=== PATIENT | male | born 1950 | race Two or more races ===

== ENCOUNTER 2021-02-03 10:23 | Outpatient (CLI) | payer OTHER | END 2021-02-03 10:45 | disposition home or self-care (01) | LOC: TOM 10:23 | DX: R19.4 Change in bowel habit (principal) ==

== ENCOUNTER 2024-10-05 05:57 | Inpatient (IN) | payer OTHER ==
[~2024-10-05] VITALS: Ht 182.9 cm; Wt 95.3 kg
[2024-10-05] MEDS ORDERED: ELIQUIS5 MG PO (06:45)
[2024-10-05] MEDS ORDERED: SIMVASTATIN40 MG PO (06:45)
[2024-10-05] MEDS ORDERED: LOSARTAN-HCTZ1 EAC1 PO (06:45)
[2024-10-05] MEDS ORDERED: TAMSULOSIN HCL0.4 MG PO (06:46)
[2024-10-05] MEDS ORDERED: METOPROLOL TAR100 MG PO (06:46)
[2024-10-05] MEDS ORDERED: LOSARTAN-HCTZ1 EAC2 PO (06:46)
[2024-10-05] MEDS ORDERED: FUROsemide 40 MG/4 ML VIAL IV ONE (08:30)
[2024-10-05 09:10] LABS: HEMATOCRIT 40.8 % (39.0-48.0); HEMOGLOBIN 14.1 g/dL (13-16.00); MEAN CELL VOLUME 100.3 fL (80.0-100.00); MEAN CORPUSCULAR HEMOGLOBIN 34.7 pg (27.00-32.0); MEAN CORPUSCULAR HGB CONC 34.6 g/dl (32.0-36.0); PLATELET COUNT 144 K/uL (150-450); RED BLOOD COUNT 4.07 M/uL (4.00-6.00); RED CELL DISTRIBUTION WIDTH 13.3 % (11.5-14.5)
[2024-10-05] MEDS ORDERED: LEVALBUTEROL HCL 1.25 MG/3 ML SOLUTION IH ONE (09:35)
[2024-10-05] MEDS ORDERED: IPRATROPIUM BROMIDE 0.5 MG/2.5 ML AMPUL.NEB IH ONE (09:35)
[2024-10-05] MEDS ORDERED: NITROGLYCERIN IN 5 % DEXTROSE 50 MG/250 ML BOTTLE IV ONE (09:42)
[2024-10-05 09:44] LABS: URINE APPEARANCE Clear; URINE BILIRRUBIN Negative (NEGATIVE); URINE BLOOD Negative; URINE COLOR Yellow; URINE GLUCOSE Negative (NEGATIVE); URINE KETONE Trace (NEGATIVE); URINE LEUKOCYTE Negative; URINE NITRATE Negative; URINE PROTEIN Trace (NEGATIVE); URINE UROBILINOGEN 0.2 E.U./dl
[2024-10-05 09:47] LABS: URINE BACTERIA 145.6 uL (0.0-1933); URINE EPITHELIAL CELLS 9.1 uL (0.0-38.8); URINE WBC 6.9 uL (0.0-23.2)
[2024-10-05 09:48] LABS: URINE CAST 0.44 uL (0.0-1.40); URINE RBC 1.7 uL (0.0-20.8)
[2024-10-05] MEDS ORDERED: NITROGLYCERIN IN 5 % DEXTROSE 250 ML IV SCH (10:00)
[2024-10-05 10:01] LABS: ABG PH 7.395 (7.35-7.45); ABG PO2 62.4 mmHg (80-100); ABG pCO2 42.6 mmHg (35-45); BASE EXCESS 0.4 mmol/l; BICARBONATE 25.5 mmol/l (23-25); SaO2 91.4 %; Tco2 26.8 mmol/l; allen test SATISFACTORY; o2 32 %; puncture site RADIAL RIGHT
[2024-10-05 10:08] LABS: ALBUMIN 3.6 gm/dL (3.4-5.0); BILIRUBIN TOTAL 1.02 mg/dL (0.3-1.2); CALCIUM 9.3 mg/dL (8.5-10.1); CREATININE SERUM 1.1 mg/dL (0.70-1.30); GFR 65.8; GLOBULINA 3.7 G/DL (2.4-3.5); POTASSIUM 3.44 mEq/L (3.5-5.1); TOTAL PROTEIN 7.3 gm/dL (6.4-8.2)
[2024-10-05 10:32] LABS: INR 1.15; PARTIAL THROMBOPLASTIN TIME 32.8 SECONDS (22.0-34.0); PROTHROMBIN TIME 12.4 SECONDS (9.0-11.5)
[2024-10-05] MEDS ORDERED: LOSARTAN POTASSIUM 100 MG TABLET PO ONE (11:00)
[2024-10-05] MEDS ORDERED: APIXABAN 5 MG TABLET PO ONE (13:00)
[2024-10-05] MEDS ORDERED: DILTIAZEM HCL 125MG/25ML VIAL IV ONE (13:32)
[2024-10-05] MEDS ORDERED: DILTIAZEM HCL 125 MG in 0.9 % SODIUM CHLORIDE 100 ML IV SCH (13:45)
[2024-10-05 14:19] LABS: ABG PH 7.407 (7.35-7.45); ABG PO2 83.4 mmHg (80-100); ABG pCO2 46.2 mmHg (35-45); BICARBONATE 28.4 mmol/l (23-25); SaO2 96.3 %; Tco2 29.8 mmol/l; allen test SATISFACTORY; puncture site RADIAL RIGHT
[2024-10-05 14:20] LABS: o2 50 %
[2024-10-05] MEDS ORDERED: FUROsemide 40 MG/4 ML VIAL ONE (15:31)
[2024-10-05 16:49] VITALS: BP 146/84; O2SAT 96
[2024-10-05] MEDS ORDERED: FAMOtidine 20 MG TABLET PO SCH (17:00)
[2024-10-05] MEDS ORDERED: APIXABAN 5 MG TABLET PO SCH (17:00)
[2024-10-05] MEDS ORDERED: SIMVASTATIN 40 MG TABLET PO SCH (17:00)
[2024-10-05] MEDS ORDERED: FUROsemide 40 MG/4 ML VIAL IV SCH ×2 (17:00→21:00)
[2024-10-05] MEDS ORDERED: FAMOTIDINE/PF 20 MG/2 ML VIAL ONE (17:41)
[2024-10-05 17:59] VITALS: BP 118/96; O2SAT 96
[2024-10-05 21:16] VITALS: BP 92/66; O2SAT 94
[2024-10-05 22:36] VITALS: BP 112/60; O2SAT 97
[2024-10-06] VITALS (8 sets, daily range): BP systolic 54–123; BP diastolic 33–75; O2SAT 92–100
[2024-10-06] MEDS ORDERED: DILTIAZEM HCL 125MG/25ML VIAL IV ONE (04:38)
[2024-10-06 06:27] LABS: HEMATOCRIT 49.1 % (39.0-48.0); HEMOGLOBIN 16.5 g/dL (13-16.00); MEAN CELL VOLUME 102.6 fL (80.0-100.00); MEAN CORPUSCULAR HEMOGLOBIN 34.4 pg (27.00-32.0); MEAN CORPUSCULAR HGB CONC 33.6 g/dl (32.0-36.0); PLATELET COUNT 152 K/uL (150-450); RED BLOOD COUNT 4.79 M/uL (4.00-6.00); RED CELL DISTRIBUTION WIDTH 13.3 % (11.5-14.5)
[2024-10-06 06:46] LABS: ALBUMIN 3.4 gm/dL (3.4-5.0); BILIRUBIN TOTAL 0.56 mg/dL (0.3-1.2); CREATININE SERUM 2.13 mg/dL (0.70-1.30); GFR 30.69; GLOBULINA 3.6 G/DL (2.4-3.5); POTASSIUM 4.87 mEq/L (3.5-5.1)
[2024-10-06] MEDS ORDERED: CHLORHEXIDINE GLUCONATE 120 ML BOTTLE TOP ONE (08:05)
[2024-10-06] MEDS ORDERED: METOPROLOL SUCCINATE 100 MG TAB.SR.24H PO SCH (09:00)
[2024-10-06] MEDS ORDERED: LOSARTAN/HYDROCHLOROTHIAZIDE 1 UDTAB TABLET PO SCH (09:00)
[2024-10-06] MEDS ORDERED: TAMSULOSIN HCL 0.4 MG CAP PO SCH (09:00)
[2024-10-06 10:05] LABS: ABG PH 7.351 (7.35-7.45); ABG pCO2 45.7 mmHg (35-45); BASE EXCESS -1.2 mmol/l; BICARBONATE 24.7 mmol/l (23-25); SaO2 96.8 %; Tco2 26.1 mmol/l
[2024-10-06 10:06] LABS: allen test SATISFACTORY; puncture site RADIAL RIGHT
[2024-10-06 12:10] LABS: o2 100 %
[2024-10-06] MEDS ORDERED: FUROsemide 20 MG/2 ML VIAL IV SCH ×2 (15:33→21:00)
[2024-10-06] MEDS ORDERED: LORazepam 2 MG/ML VIAL ONE (19:07)
[2024-10-06] MEDS ORDERED: LORazepam 1 MG TABLET PO ONE (19:15)
[2024-10-06] MEDS ORDERED: LORazepam 2 MG/ML VIAL IV ONE (19:15)
[2024-10-07] VITALS (12 sets, daily range): BP systolic 86–144; BP diastolic 54–91; O2SAT 89–100
[2024-10-07] MEDS ORDERED: CEFTRIAXONE SODIUM 2,000 MG in DEXTROSE 5 % IN WATER 100 ML IV SCH (11:50)
[2024-10-07] MEDS ORDERED: LORazepam 2 MG/ML VIAL IV PRN (12:00)
[2024-10-07] MEDS ORDERED: AZITHROMYCIN 500 MG VIAL IV SCH (12:00)
[2024-10-07] MEDS ORDERED: CEFTRIAXONE SODIUM 2,000 MG VIAL ONE (12:21)
[2024-10-07] MEDS ORDERED: AZITHROMYCIN 500 MG VIAL IV ONE (12:21)
[2024-10-07] MEDS ORDERED: QUETIAPINE FUMARATE 25 MG TABLET PO SCH (17:00)
[2024-10-07] MEDS ORDERED: AMIODARONE HCL 50 MG/ML AMPUL IV ONE ×2 (19:45→19:48)
[2024-10-07] MEDS ORDERED: AMIODARONE IN DEXTROSE,ISO-OSM 360 MG/200 ML IV.SOLN IV ONE (19:49)
[2024-10-08] VITALS (15 sets, daily range): BP systolic 89–130; BP diastolic 57–78; O2SAT 00–100
[2024-10-08] MEDS ORDERED: AMIODARONE IN DEXTROSE,ISO-OSM 360 MG/200 ML IV.SOLN IV ONE (01:30)
[2024-10-08 06:31] LABS: HEMATOCRIT 45.3 % (39.0-48.0); HEMOGLOBIN 15.1 g/dL (13-16.00); MEAN CELL VOLUME 102.2 fL (80.0-100.00); MEAN CORPUSCULAR HEMOGLOBIN 34.1 pg (27.00-32.0); MEAN CORPUSCULAR HGB CONC 33.4 g/dl (32.0-36.0); PLATELET COUNT 159 K/uL (150-450); RED BLOOD COUNT 4.44 M/uL (4.00-6.00); RED CELL DISTRIBUTION WIDTH 13.2 % (11.5-14.5)
[2024-10-08 06:40] LABS: MYCOPLASMA PNEUMONIAE IGM NON REACTIVE (NO REACTIVE)
[2024-10-08 06:53] LABS: ALBUMIN 2.7 gm/dL (3.4-5.0); BILIRUBIN TOTAL 0.58 mg/dL (0.3-1.2); CALCIUM 8.9 mg/dL (8.5-10.1); CREATININE SERUM 1.88 mg/dL (0.70-1.30); GFR 35.45; GLOBULINA 3.4 G/DL (2.4-3.5); PHOSPHOROUS 2.7 mg/dL (2.5-4.9); POTASSIUM 4.48 mEq/L (3.5-5.1); TOTAL PROTEIN 6.1 gm/dL (6.4-8.2)
[2024-10-08 07:03] LABS: C-REACTIVE PROTEIN 21.8 MG/DL (0.00-0.29)
[2024-10-08 08:54] LABS: ABG PH 7.457 (7.35-7.45); ABG PO2 227.6 mmHg (80-100); ABG pCO2 42.5 mmHg (35-45); BASE EXCESS 4.9 mmol/l; BICARBONATE 29.3 mmol/l (23-25); SaO2 99.8 %; Tco2 30.6 mmol/l; allen test SATISFACTORY; o2 100 %; puncture site RADIAL RIGHT
[2024-10-09] VITALS (21 sets, daily range): BP systolic 92–162; BP diastolic 63–88; O2SAT 90–110
[2024-10-09] MEDS ORDERED: AZITHROMYCIN 500 MG VIAL IV ONE (13:02)
[2024-10-09] MEDS ORDERED: FUROsemide 40 MG/4 ML VIAL IV SCH (17:00)
[2024-10-10] VITALS (21 sets, daily range): BP systolic 89–125; BP diastolic 57–92; O2SAT 82–112
[2024-10-10 06:49] LABS: ALBUMIN 2.1 gm/dL (3.4-5.0); BILIRUBIN TOTAL 0.72 mg/dL (0.3-1.2); CALCIUM 8.3 mg/dL (8.5-10.1); CREATININE SERUM 1.46 mg/dL (0.70-1.30); GFR 47.46; GLOBULINA 3.4 G/DL (2.4-3.5); POTASSIUM 3.52 mEq/L (3.5-5.1); TOTAL PROTEIN 5.5 gm/dL (6.4-8.2)
[2024-10-10] MEDS ORDERED: CHLORHEXIDINE GLUCONATE 120 ML BOTTLE TOP ONE (09:50)
[2024-10-10] MEDS ORDERED: AZITHROMYCIN 500 MG VIAL IV ONE (11:20)
[2024-10-10 13:00] LABS: ABG PH 7.486 (7.35-7.45); ABG PO2 105.5 mmHg (80-100); SaO2 98.6 %
[2024-10-10 13:01] LABS: BASE EXCESS 9.8 mmol/l; BICARBONATE 34.7 mmol/l (23-25); Tco2 36.1 mmol/l; allen test SATISFACTORY; o2 100 %; puncture site RADIAL RIGHT
[2024-10-10] MEDS ORDERED: AMINO ACIDS CENTRAL SCH (17:00)
[2024-10-10] MEDS ORDERED: DEXTROSE 10% CENTRAL SCH (17:00)
[2024-10-11] VITALS (24 sets, daily range): BP systolic 82–126; BP diastolic 36–82; O2SAT 96–100
[2024-10-11 06:08] LABS: HEMATOCRIT 41.6 % (39.0-48.0); HEMOGLOBIN 14.3 g/dL (13-16.00); MEAN CELL VOLUME 100.7 fL (80.0-100.00); MEAN CORPUSCULAR HEMOGLOBIN 34.5 pg (27.00-32.0); MEAN CORPUSCULAR HGB CONC 34.3 g/dl (32.0-36.0); PLATELET COUNT 183 K/uL (150-450); RED BLOOD COUNT 4.13 M/uL (4.00-6.00); RED CELL DISTRIBUTION WIDTH 13.1 % (11.5-14.5)
[2024-10-11 06:30] LABS: CALCIUM 8.4 mg/dL (8.5-10.1); CREATININE SERUM 1.01 mg/dL (0.70-1.30); GFR 72.61; PHOSPHOROUS 2.1 mg/dL (2.5-4.9); POTASSIUM 3.29 mEq/L (3.5-5.1)
[2024-10-11 06:35] LABS: CALCIUM 8.2 mg/dL (8.5-10.1); CHOL HDL RATIO 2.5 (0-5.0); GFR 73.45; POTASSIUM 3.4 mEq/L (3.5-5.1)
[2024-10-11] MEDS ORDERED: AZITHROMYCIN 500 MG VIAL IV ONE (08:40)
[2024-10-11 11:34] LABS: ABG PH 7.458 (7.35-7.45); ABG PO2 105.1 mmHg (80-100); ABG pCO2 54.1 mmHg (35-45); BASE EXCESS 11.3 mmol/l; BICARBONATE 37.4 mmol/l (23-25); SaO2 98.5 %
[2024-10-11 11:35] LABS: allen test SATISFACTORY; o2 100 %; puncture site RADIAL LEFT
[2024-10-11] MEDS ORDERED: POTASSIUM CHLORIDE 20MEQ/100ML H2O PB IV SCH (12:00)
[2024-10-11] MEDS ORDERED: ACETAMINOPHEN 500 MG GEL..CAP PO PRN (13:15)
[2024-10-11] MEDS ORDERED: ACETAZOLAMIDE SODIUM 500 MG VIAL IV SCH (17:00)
[2024-10-12] VITALS (24 sets, daily range): BP systolic 86–123; BP diastolic 60–79; O2SAT 90–100
[2024-10-12 07:59] LABS: ALBUMIN 2.1 gm/dL (3.4-5.0); BILIRUBIN TOTAL 0.63 mg/dL (0.3-1.2); CALCIUM 8.7 mg/dL (8.5-10.1); CREATININE SERUM 1.05 mg/dL (0.70-1.30); GFR 69.43; GLOBULINA 3.6 G/DL (2.4-3.5); PHOSPHOROUS 2.5 mg/dL (2.5-4.9); POTASSIUM 3.44 mEq/L (3.5-5.1); TOTAL PROTEIN 5.7 gm/dL (6.4-8.2)
[2024-10-12 08:11] LABS: C-REACTIVE PROTEIN 14.3 MG/DL (0.00-0.29)
[2024-10-12 08:42] LABS: HEMATOCRIT 42.3 % (39.0-48.0); HEMOGLOBIN 14.2 g/dL (13-16.00); MEAN CELL VOLUME 101.1 fL (80.0-100.00); MEAN CORPUSCULAR HGB CONC 33.7 g/dl (32.0-36.0); PLATELET COUNT 231 K/uL (150-450); RED BLOOD COUNT 4.18 M/uL (4.00-6.00); RED CELL DISTRIBUTION WIDTH 13.5 % (11.5-14.5)
[2024-10-12 09:02] LABS: ABG PH 7.414 (7.35-7.45); ABG PO2 241.8 mmHg (80-100); ABG pCO2 51.9 mmHg (35-45); BASE EXCESS 6.4 mmol/l; BICARBONATE 32.5 mmol/l (23-25); SaO2 99.8 %; Tco2 34.1 mmol/l
[2024-10-12 10:47] LABS: allen test SATISFACTORY; o2 100 %; puncture site RADIAL RIGHT
[2024-10-12] MEDS ORDERED: FUROsemide 20 MG/2 ML VIAL IV SCH (17:00)
[2024-10-12] MEDS ORDERED: ACETAZOLAMIDE SODIUM 500 MG VIAL IV SCH (17:00)
[2024-10-13] VITALS (23 sets, daily range): BP systolic 91–122; BP diastolic 63–86; O2SAT 93–100
[2024-10-13 08:58] LABS: ABG PH 7.439 (7.35-7.45); ABG PO2 306.2 mmHg (80-100); ABG pCO2 43.1 mmHg (35-45); BASE EXCESS 3.9 mmol/l; BICARBONATE 28.6 mmol/l (23-25); SaO2 99.9 %; Tco2 29.9 mmol/l
[2024-10-13 09:51] LABS: allen test SATISFACTORY; puncture site RADIAL RIGHT
[2024-10-13 09:52] LABS: o2 100 %
[2024-10-13] MEDS ORDERED: LEVALBUTEROL HCL 0.63 MG/3 ML SOLUTION IH SCH (14:11)
[2024-10-13] MEDS ORDERED: SODIUM CHLORIDE FOR INHALATION 1 VIAL.NEB IH SCH (17:00)
[2024-10-14] VITALS (8 sets, daily range): BP systolic 82–130; BP diastolic 51–76; O2SAT 100
[2024-10-14 06:51] LABS: HEMATOCRIT 40.4 % (39.0-48.0); HEMOGLOBIN 13.9 g/dL (13-16.00); MEAN CELL VOLUME 98.3 fL (80.0-100.00); MEAN CORPUSCULAR HEMOGLOBIN 33.9 pg (27.00-32.0); MEAN CORPUSCULAR HGB CONC 34.5 g/dl (32.0-36.0); PLATELET COUNT 252 K/uL (150-450); RED BLOOD COUNT 4.11 M/uL (4.00-6.00); RED CELL DISTRIBUTION WIDTH 13.1 % (11.5-14.5)
[2024-10-14 07:08] LABS: INR 1.21; PARTIAL THROMBOPLASTIN TIME 28.7 SECONDS (22.0-34.0)
[2024-10-14 08:25] LABS: ALBUMIN 2.2 gm/dL (3.4-5.0); BILIRUBIN TOTAL 0.53 mg/dL (0.3-1.2); BILIRUBIN,CONJUGATED 0.19 mg/dL (0.0-0.2); BILIRUBIN,UNCONJUGATED 0.34 mg/dL (0.0-0.6); CALCIUM 8.7 mg/dL (8.5-10.1); CHOL HDL RATIO 3.6 (0-5.0); CREATININE SERUM 1.2 mg/dL (0.70-1.30); GFR 59.51; MAGNESIUM 1.7 mg/dL (1.8-2.4); TOTAL PROTEIN 5.8 gm/dL (6.4-8.2)
[2024-10-14 08:30] LABS: UREA CLEARANCE 25.6 ML/MIN
[2024-10-14 08:36] LABS: POTASSIUM 2.92 mEq/L (3.5-5.1)
[2024-10-14] MEDS ORDERED: POTASSIUM CHLORIDE 20MEQ/100ML H2O PB IV ONE (20:09)
[2024-10-15] VITALS (11 sets, daily range): BP systolic 88–112; BP diastolic 49–74; O2SAT 94–100
[2024-10-15 06:25] LABS: HEMATOCRIT 40.5 % (39.0-48.0); HEMOGLOBIN 13.7 g/dL (13-16.00); MEAN CELL VOLUME 99.7 fL (80.0-100.00); MEAN CORPUSCULAR HEMOGLOBIN 33.8 pg (27.00-32.0); MEAN CORPUSCULAR HGB CONC 33.9 g/dl (32.0-36.0); PLATELET COUNT 287 K/uL (150-450); RED BLOOD COUNT 4.06 M/uL (4.00-6.00); RED CELL DISTRIBUTION WIDTH 12.9 % (11.5-14.5)
[2024-10-15 07:27] LABS: ALBUMIN 2.3 gm/dL (3.4-5.0); BILIRUBIN TOTAL 0.52 mg/dL (0.3-1.2); CALCIUM 8.9 mg/dL (8.5-10.1); CREATININE SERUM 1.2 mg/dL (0.70-1.30); GFR 59.51; GLOBULINA 3.5 G/DL (2.4-3.5); PHOSPHOROUS 3.5 mg/dL (2.5-4.9); POTASSIUM 3.21 mEq/L (3.5-5.1); TOTAL PROTEIN 5.8 gm/dL (6.4-8.2)
[2024-10-15 07:35] LABS: C-REACTIVE PROTEIN 13.1 MG/DL (0.00-0.29)
[2024-10-15] MEDS ORDERED: POTASSIUM CHLORIDE 20MEQ/100ML H2O PB IV NR (14:00)
[2024-10-15] MEDS ORDERED: MAGNESIUM SULFATE IN WATER 2 GM/50 ML PIGGYBAG IV NR (15:00)
[2024-10-15] MEDS ORDERED: POTASSIUM CHLORIDE 20MEQ/100ML H2O PB IV SCH (17:00)
[2024-10-15] MEDS ORDERED: AMIODARONE HCL 200 MG TABLET PO SCH (17:00)
[2024-10-16 04:00] VITALS: BP 115/61; O2SAT 96
[2024-10-16 07:00] VITALS: BP 111/79; O2SAT 97
[2024-10-16] MEDS ORDERED: CEFTRIAXONE SODIUM 2,000 MG VIAL ONE (08:12)
[2024-10-16] MEDS ORDERED: SODIUM CHLORIDE FOR INHALATION 1 VIAL.NEB IH SCH (09:00)
[2024-10-16 12:00] VITALS: BP 129/81; O2SAT 98
[2024-10-16 15:19] VITALS: BP 123/75; O2SAT 100
[2024-10-16 20:00] VITALS: BP 105/66; O2SAT 100
[2024-10-16 23:23] VITALS: BP 104/72; O2SAT 95
[2024-10-17 04:00] VITALS: BP 93/70; O2SAT 96
[2024-10-17 06:32] LABS: HEMATOCRIT 42.3 % (39.0-48.0); HEMOGLOBIN 14.6 g/dL (13-16.00); MEAN CELL VOLUME 98.6 fL (80.0-100.00); MEAN CORPUSCULAR HEMOGLOBIN 34.1 pg (27.00-32.0); MEAN CORPUSCULAR HGB CONC 34.6 g/dl (32.0-36.0); PLATELET COUNT 356 K/uL (150-450); RED BLOOD COUNT 4.29 M/uL (4.00-6.00); RED CELL DISTRIBUTION WIDTH 13.1 % (11.5-14.5)
[2024-10-17 07:05] VITALS: BP 112/75; O2SAT 96
[2024-10-17 07:16] LABS: ALBUMIN 2.4 gm/dL (3.4-5.0); BILIRUBIN TOTAL 1.45 mg/dL (0.3-1.2); CALCIUM 9.1 mg/dL (8.5-10.1); CREATININE SERUM 1.24 mg/dL (0.70-1.30); GFR 57.3; GLOBULINA 3.9 G/DL (2.4-3.5); POTASSIUM 3.34 mEq/L (3.5-5.1); TOTAL PROTEIN 6.3 gm/dL (6.4-8.2)
[2024-10-17 07:25] LABS: C-REACTIVE PROTEIN 23.4 MG/DL (0.00-0.29)
[2024-10-17 12:06] VITALS: BP 124/84; O2SAT 97
[2024-10-17] MEDS ORDERED: MEROPENEM 500 MG/VIAL VIAL IV SCH (14:00)
[2024-10-17 14:30] LABS: URINE APPEARANCE Cloudy; URINE BILIRRUBIN Small (NEGATIVE); URINE BLOOD Large; URINE COLOR Orange; URINE GLUCOSE Negative (NEGATIVE); URINE KETONE Negative (NEGATIVE); URINE LEUKOCYTE Small; URINE NITRATE Negative; URINE UROBILINOGEN 0.2 E.U./dl
[2024-10-17 14:31] LABS: URINE EPITHELIAL CELLS 16.4 uL (0.0-38.8); URINE RBC 2951.5 uL (0.0-20.8); URINE WBC 106.3 uL (0.0-23.2)
[2024-10-17 14:53] LABS: URINE CAST 0.14 uL (0.0-1.40); URINE PROTEIN 100 (NEGATIVE)
[2024-10-17 14:54] LABS: URINE MUCUS SCANT
[2024-10-17 15:21] VITALS: BP 123/78; O2SAT 95
[2024-10-17] MEDS ORDERED: QUETIAPINE FUMARATE 25 MG TABLET PO SCH (17:00)
[2024-10-17] MEDS ORDERED: VANCOMYCIN HCL 5 MG/ML REDILUIDO IV SCH (17:00)
[2024-10-17 20:00] VITALS: BP 122/81; O2SAT 97
[2024-10-17 23:35] VITALS: BP 122/81; O2SAT 93
[2024-10-18 04:00] VITALS: BP 93/64; O2SAT 100
[2024-10-18 07:18] VITALS: BP 100/67; O2SAT 100
[2024-10-18 07:40] LABS: HEMATOCRIT 40.4 % (39.0-48.0); HEMOGLOBIN 13.5 g/dL (13-16.00); MEAN CELL VOLUME 98.9 fL (80.0-100.00); MEAN CORPUSCULAR HGB CONC 33.4 g/dl (32.0-36.0); PLATELET COUNT 332 K/uL (150-450); RED BLOOD COUNT 4.09 M/uL (4.00-6.00); RED CELL DISTRIBUTION WIDTH 13.2 % (11.5-14.5)
[2024-10-18 08:13] LABS: PLATELET ESTIMATE NORMAL (NORMAL)
[2024-10-18 08:21] LABS: CALCIUM 8.9 mg/dL (8.5-10.1); CREATININE SERUM 1.06 mg/dL (0.70-1.30); GFR 68.67; MAGNESIUM 1.8 mg/dL (1.8-2.4); PHOSPHOROUS 3.6 mg/dL (2.5-4.9); POTASSIUM 3.39 mEq/L (3.5-5.1)
[2024-10-18] MEDS ORDERED: 0.9 % SODIUM CHLORIDE 250 ML IV ONE (10:15)
[2024-10-18] MEDS ORDERED: 0.9 % SODIUM CHLORIDE 1,000 ML IV SCH (10:15)
[2024-10-18 12:00] VITALS: BP 91/52; O2SAT 100
[2024-10-18] MEDS ORDERED: 0.9 % SODIUM CHLORIDE 1,000 ML IV ONE ×2 (12:15)
[2024-10-18] MEDS ORDERED: ACETAMINOPHEN 500 MG GEL..CAP PO PRN (14:45)
[2024-10-18 15:15] VITALS: BP 116/67; O2SAT 93
[2024-10-18] MEDS ORDERED: ANIDULAFUNGIN 100 MG VIAL IV SCH (18:00)
[2024-10-18 20:00] VITALS: BP 93/60; O2SAT 100
[2024-10-18 23:17] VITALS: BP 89/57; O2SAT 100
[2024-10-19 04:00] VITALS: BP 102/57; O2SAT 98
[2024-10-19 07:00] VITALS: BP 103/60; O2SAT 100
[2024-10-19 08:23] LABS: HEMATOCRIT 35.7 % (39.0-48.0); HEMOGLOBIN 12.3 g/dL (13-16.00); MEAN CELL VOLUME 98.4 fL (80.0-100.00); MEAN CORPUSCULAR HEMOGLOBIN 33.9 pg (27.00-32.0); MEAN CORPUSCULAR HGB CONC 34.4 g/dl (32.0-36.0); PLATELET COUNT 347 K/uL (150-450); RED BLOOD COUNT 3.63 M/uL (4.00-6.00); RED CELL DISTRIBUTION WIDTH 13.3 % (11.5-14.5)
[2024-10-19 08:25] LABS: CALCIUM 8.2 mg/dL (8.5-10.1); CREATININE SERUM 0.79 mg/dL (0.70-1.30); GFR 96.41; PHOSPHOROUS 3.2 mg/dL (2.5-4.9); POTASSIUM 4.04 mEq/L (3.5-5.1)
[2024-10-19 08:28] LABS: CKMB 1.4 NG/ML (0.5-3.6)
[2024-10-19 12:00] VITALS: BP 106/62; O2SAT 100
[2024-10-19 15:30] VITALS: BP 98/65; O2SAT 100
[2024-10-19] MEDS ORDERED: ANIDULAFUNGIN 100 MG VIAL IV SCH (17:00)
[2024-10-19 20:00] VITALS: BP 109/61; O2SAT 100
[2024-10-19 23:12] VITALS: BP 109/72; O2SAT 99
[2024-10-20 04:00] VITALS: BP 100/60; O2SAT 98
[2024-10-20 07:00] VITALS: BP 117/72; O2SAT 98
[2024-10-20 08:03] LABS: HEMATOCRIT 33.9 % (39.0-48.0); HEMOGLOBIN 11.5 g/dL (13-16.00); MEAN CELL VOLUME 98.1 fL (80.0-100.00); MEAN CORPUSCULAR HEMOGLOBIN 33.5 pg (27.00-32.0); MEAN CORPUSCULAR HGB CONC 34.1 g/dl (32.0-36.0); PLATELET COUNT 373 K/uL (150-450); RED BLOOD COUNT 3.45 M/uL (4.00-6.00); RED CELL DISTRIBUTION WIDTH 13.6 % (11.5-14.5)
[2024-10-20 08:12] LABS: CALCIUM 8.1 mg/dL (8.5-10.1); CREATININE SERUM 0.75 mg/dL (0.70-1.30); GFR 102.37; MAGNESIUM 1.9 mg/dL (1.8-2.4); PHOSPHOROUS 2.8 mg/dL (2.5-4.9); POTASSIUM 3.59 mEq/L (3.5-5.1)
[2024-10-20 08:23] LABS: ALBUMIN 1.5 gm/dL (3.4-5.0); BILIRUBIN TOTAL 1.38 mg/dL (0.3-1.2); CREATININE SERUM 0.75 mg/dL (0.70-1.30); GFR 102.37; GLOBULINA 3.4 G/DL (2.4-3.5); POTASSIUM 3.56 mEq/L (3.5-5.1); TOTAL PROTEIN 4.9 gm/dL (6.4-8.2)
[2024-10-20 08:33] LABS: C-REACTIVE PROTEIN 23.2 MG/DL (0.00-0.29)
[2024-10-20 12:00] VITALS: BP 105/56; O2SAT 100
[2024-10-20 15:17] VITALS: BP 106/67; O2SAT 99
[2024-10-20 20:00] VITALS: BP 108/72; O2SAT 100
[2024-10-20 23:46] VITALS: BP 108/55; O2SAT 98
[2024-10-21 04:00] VITALS: BP 105/68; O2SAT 97
[2024-10-21 07:08] VITALS: BP 106/46; O2SAT 97
[2024-10-21 07:29] LABS: HEMATOCRIT 33.1 % (39.0-48.0); HEMOGLOBIN 11.3 g/dL (13-16.00); MEAN CELL VOLUME 98.5 fL (80.0-100.00); MEAN CORPUSCULAR HEMOGLOBIN 33.5 pg (27.00-32.0); PLATELET COUNT 390 K/uL (150-450); RED BLOOD COUNT 3.36 M/uL (4.00-6.00); RED CELL DISTRIBUTION WIDTH 13.6 % (11.5-14.5)
[2024-10-21 07:43] LABS: INR 1.31
[2024-10-21 07:54] LABS: ALBUMIN 1.4 gm/dL (3.4-5.0); BILIRUBIN TOTAL 1.38 mg/dL (0.3-1.2); CALCIUM 8.1 mg/dL (8.5-10.1); CHOL HDL RATIO 3.9 (0-5.0); CREATININE SERUM 0.68 mg/dL (0.70-1.30); GFR 114.63; GLOBULINA 3.5 G/DL (2.4-3.5); PHOSPHOROUS 2.4 mg/dL (2.5-4.9); POTASSIUM 3.5 mEq/L (3.5-5.1); TOTAL PROTEIN 4.9 gm/dL (6.4-8.2)
[2024-10-21 10:04] LABS: UREA CLEARANCE 49.4 ML/MIN
[2024-10-21 12:28] VITALS: BP 121/71; O2SAT 99
[2024-10-21 14:10] LABS: ALBUMIN 1.3 gm/dL (3.4-5.0); BILIRUBIN TOTAL 3.09 mg/dL (0.3-1.2); CALCIUM 7.9 mg/dL (8.5-10.1); CREATININE SERUM 0.72 mg/dL (0.70-1.30); GFR 107.31; GLOBULINA 3.2 G/DL (2.4-3.5); MAGNESIUM 1.9 mg/dL (1.8-2.4); PHOSPHOROUS 2.5 mg/dL (2.5-4.9); POTASSIUM 3.02 mEq/L (3.5-5.1); TOTAL PROTEIN 4.5 gm/dL (6.4-8.2)
[2024-10-21 17:29] VITALS: BP 110/74; O2SAT 96
[2024-10-22 03:12] VITALS: BP 122/75; O2SAT 96
[2024-10-22 06:44] LABS: AMYLASE 112 U/L (25-115)
[2024-10-22 06:45] LABS: LIPASE 123 U/L (13-75)
[2024-10-22 06:49] LABS: HEMATOCRIT 33.5 % (39.0-48.0); HEMOGLOBIN 11.4 g/dL (13-16.00); MEAN CELL VOLUME 99.2 fL (80.0-100.00); MEAN CORPUSCULAR HEMOGLOBIN 33.8 pg (27.00-32.0); MEAN CORPUSCULAR HGB CONC 34.1 g/dl (32.0-36.0); PLATELET COUNT 375 K/uL (150-450); RED BLOOD COUNT 3.38 M/uL (4.00-6.00); RED CELL DISTRIBUTION WIDTH 13.7 % (11.5-14.5)
[2024-10-22 11:26] VITALS: BP 133/77
[2024-10-22] MEDS ORDERED: VANCOMYCIN HCL 1,000 MG VIAL IV SCH (17:00)
[2024-10-22] MEDS ORDERED: POTASSIUM CHLORIDE IN WATER 100 ML IV NR (17:00)
[2024-10-22 18:51] VITALS: BP 134/77
[2024-10-22 19:18] LABS: ABG PH 7.413 (7.35-7.45); ABG PO2 82.7 mmHg (80-100); ABG pCO2 36.7 mmHg (35-45); BASE EXCESS -1.2 mmol/l; BICARBONATE 22.9 mmol/l (23-25); SaO2 96.2 %
[2024-10-22 19:19] LABS: allen test SATISFACTORY; puncture site RADIAL RIGHT
[2024-10-22 19:21] LABS: o2 21 %
[2024-10-23 02:58] VITALS: BP 120/79; O2SAT 93
[2024-10-23 08:58] LABS: HEMATOCRIT 33.5 % (39.0-48.0); HEMOGLOBIN 11.5 g/dL (13-16.00); MEAN CELL VOLUME 97.7 fL (80.0-100.00); MEAN CORPUSCULAR HEMOGLOBIN 33.7 pg (27.00-32.0); MEAN CORPUSCULAR HGB CONC 34.5 g/dl (32.0-36.0); PLATELET COUNT 376 K/uL (150-450); RED BLOOD COUNT 3.42 M/uL (4.00-6.00); RED CELL DISTRIBUTION WIDTH 13.9 % (11.5-14.5)
[2024-10-23 09:45] LABS: ALBUMIN 1.3 gm/dL (3.4-5.0); BILIRUBIN TOTAL 4.21 mg/dL (0.3-1.2); CALCIUM 8.1 mg/dL (8.5-10.1); CREATININE SERUM 0.71 mg/dL (0.70-1.30); GFR 109.05; GLOBULINA 3.4 G/DL (2.4-3.5); POTASSIUM 3.68 mEq/L (3.5-5.1); TOTAL PROTEIN 4.7 gm/dL (6.4-8.2)
[2024-10-23 09:47] VITALS: BP 139/76; O2SAT 97
[2024-10-23] MEDS ORDERED: QUETIAPINE FUMARATE 25 MG TABLET PO SCH (17:00)
[2024-10-23 19:17] VITALS: BP 141/83
[2024-10-24 02:29] VITALS: BP 136/77
[2024-10-24 07:53] LABS: HEMATOCRIT 33.6 % (39.0-48.0); HEMOGLOBIN 11.5 g/dL (13-16.00); MEAN CELL VOLUME 98.6 fL (80.0-100.00); MEAN CORPUSCULAR HEMOGLOBIN 33.6 pg (27.00-32.0); MEAN CORPUSCULAR HGB CONC 34.1 g/dl (32.0-36.0); PLATELET COUNT 338 K/uL (150-450); RED BLOOD COUNT 3.41 M/uL (4.00-6.00); RED CELL DISTRIBUTION WIDTH 13.8 % (11.5-14.5)
[2024-10-24 08:33] LABS: ALBUMIN 1.3 gm/dL (3.4-5.0); BILIRUBIN TOTAL 3.76 mg/dL (0.3-1.2); CREATININE SERUM 0.64 mg/dL (0.70-1.30); GFR 122.93; GLOBULINA 3.4 G/DL (2.4-3.5); MAGNESIUM 1.9 mg/dL (1.8-2.4); PHOSPHOROUS 2.7 mg/dL (2.5-4.9); POTASSIUM 3.52 mEq/L (3.5-5.1); TOTAL PROTEIN 4.7 gm/dL (6.4-8.2)
[2024-10-24 19:50] VITALS: BP 150/85; O2SAT 96
[2024-10-25 01:03] VITALS: BP 126/78; O2SAT 97
[2024-10-25 06:34] LABS: HEMATOCRIT 32.8 % (39.0-48.0); HEMOGLOBIN 11.4 g/dL (13-16.00); MEAN CELL VOLUME 98.6 fL (80.0-100.00); MEAN CORPUSCULAR HEMOGLOBIN 34.1 pg (27.00-32.0); MEAN CORPUSCULAR HGB CONC 34.6 g/dl (32.0-36.0); PLATELET COUNT 339 K/uL (150-450); RED BLOOD COUNT 3.33 M/uL (4.00-6.00)
[2024-10-25 07:13] LABS: ALBUMIN 1.3 gm/dL (3.4-5.0); BILIRUBIN TOTAL 2.69 mg/dL (0.3-1.2); CREATININE SERUM 0.57 mg/dL (0.70-1.30); GFR 140.51; GLOBULINA 3.5 G/DL (2.4-3.5); POTASSIUM 3.81 mEq/L (3.5-5.1); TOTAL PROTEIN 4.8 gm/dL (6.4-8.2)
[2024-10-25 08:45] VITALS: BP 123/70
[2024-10-25] MEDS ORDERED: AMINO ACIDS 1 EACH TABLET PO SCH (13:00)
[2024-10-25 19:25] VITALS: BP 118/83
[2024-10-26 01:42] VITALS: BP 100/62; O2SAT 95
[2024-10-26 08:27] LABS: HEMATOCRIT 32.6 % (39.0-48.0); MEAN CELL VOLUME 99.3 fL (80.0-100.00); MEAN CORPUSCULAR HEMOGLOBIN 33.7 pg (27.00-32.0); MEAN CORPUSCULAR HGB CONC 33.9 g/dl (32.0-36.0); PLATELET COUNT 320 K/uL (150-450); RED BLOOD COUNT 3.28 M/uL (4.00-6.00); RED CELL DISTRIBUTION WIDTH 13.8 % (11.5-14.5)
[2024-10-26 09:12] LABS: ALBUMIN 1.4 gm/dL (3.4-5.0); BILIRUBIN TOTAL 2.02 mg/dL (0.3-1.2); CALCIUM 8.1 mg/dL (8.5-10.1); CREATININE SERUM 0.71 mg/dL (0.70-1.30); GFR 109.05; GLOBULINA 3.4 G/DL (2.4-3.5); POTASSIUM 3.87 mEq/L (3.5-5.1); TOTAL PROTEIN 4.8 gm/dL (6.4-8.2)
[2024-10-26 10:14] VITALS: BP 146/82; O2SAT 97
[2024-10-26 18:18] VITALS: BP 125/83; O2SAT 96
[2024-10-27 02:16] VITALS: BP 110/70; O2SAT 94
[2024-10-27 18:47] VITALS: BP 101/67; O2SAT 97
[2024-10-28 01:33] VITALS: BP 130/74; O2SAT 96
[2024-10-28 08:43] VITALS: BP 112/87
[2024-10-28 09:29] LABS: HEMATOCRIT 32.5 % (39.0-48.0); HEMOGLOBIN 11.1 g/dL (13-16.00); MEAN CORPUSCULAR HEMOGLOBIN 33.9 pg (27.00-32.0); MEAN CORPUSCULAR HGB CONC 34.2 g/dl (32.0-36.0); PLATELET COUNT 281 K/uL (150-450); RED BLOOD COUNT 3.28 M/uL (4.00-6.00); RED CELL DISTRIBUTION WIDTH 14.5 % (11.5-14.5)
[2024-10-28 10:24] LABS: ALBUMIN 1.5 gm/dL (3.4-5.0); BILIRUBIN TOTAL 1.55 mg/dL (0.3-1.2); BILIRUBIN,CONJUGATED 0.88 mg/dL (0.0-0.2); BILIRUBIN,UNCONJUGATED 0.67 mg/dL (0.0-0.6); CALCIUM 8.6 mg/dL (8.5-10.1); CREATININE SERUM 0.87 mg/dL (0.70-1.30); GFR 86.26; MAGNESIUM 1.7 mg/dL (1.8-2.4); PHOSPHOROUS 3.6 mg/dL (2.5-4.9); POTASSIUM 4.39 mEq/L (3.5-5.1); TOTAL PROTEIN 4.8 gm/dL (6.4-8.2)
[2024-10-28 10:25] LABS: C-REACTIVE PROTEIN 3.79 MG/DL (0.00-0.29)
[2024-10-28 18:29] VITALS: BP 118/73
[2024-10-29 01:56] VITALS: BP 121/68; O2SAT 97
[2024-10-29 08:08] LABS: hav igm Negative (Negative); hcv Non Reactive (Non Reactive); hep b c Negative (Negative); hep b s ag Negative (Negative)
[2024-10-29 09:18] VITALS: BP 19/92
[2024-10-29 16:59] VITALS: BP 96/54
[2024-10-30 02:01] VITALS: BP 104/72; O2SAT 98
[2024-10-30] MEDS ORDERED: EMPAGLIFLOZIN 10 MG TABLET PO SCH (09:00)
[2024-10-30] MEDS ORDERED: AMIODARONE HCL 200 MG TABLET PO SCH (09:00)
[2024-10-30] MEDS ORDERED: LOSARTAN POTASSIUM 25 MG TABLET PO SCH (09:00)
[2024-10-30 10:14] VITALS: BP 111/68; O2SAT 95
== END 2024-10-30 18:04 | disposition home or self-care (01) | DRG 871 ==
LOC: ER 05:57 → ICU-2 14:36 → ICU 10-08 18:06 → MEDJ 10-21 12:23
PROVIDERS: Emergency Medicine; Internal Medicine; Internal Medicine Gastroenterology; Internal Medicine Geriatric Medicine; Internal Medicine Infectious Disease; Internal Medicine Nephrology; ADMIT Internal Medicine; ATTEND Internal Medicine
PROC: BB24YZZ Computerized Tomography (CT Scan) of Bilateral Lungs using Other Contrast (ICD-10-PCS; principal; 2024-10-05)
PROC: B246ZZZ Ultrasonography of Right and Left Heart (ICD-10-PCS; 2024-10-05)
PROC: 5A09457 Assistance with Respiratory Ventilation, 24-96 Consecutive Hours, Continuous Positive Airway Pressure (ICD-10-PCS; 2024-10-07)
PROC: 02HV33Z Insertion of Infusion Device into Superior Vena Cava, Percutaneous Approach (ICD-10-PCS; 2024-10-10)
PROC: 3E0F7GC Introduction of Other Therapeutic Substance into Respiratory Tract, Via Natural or Artificial Opening (ICD-10-PCS; 2024-10-15)
PROC: 5A0935A Assistance with Respiratory Ventilation, Less than 24 Consecutive Hours, High Flow/Velocity Cannula (ICD-10-PCS; 2024-10-16)
PROC: BW40ZZZ Ultrasonography of Abdomen (ICD-10-PCS; 2024-10-18)
PROC: 4A12X4Z Monitoring of Cardiac Electrical Activity, External Approach (ICD-10-PCS; 2024-10-21)
DX: A41.9 Sepsis, unspecified organism (principal); I50.23 Acute on chronic systolic (congestive) heart failure; J18.9 Pneumonia, unspecified organism; N17.8 Other acute kidney failure; I48.19 Other persistent atrial fibrillation; I11.0 Hypertensive heart disease with heart failure

== ENCOUNTER → 2024-12-24 | Emergency (ER) | payer OTHER ==
[~2024-12-24] MED LIST: ELIQUIS5 MG PO; LOSARTAN-HCTZ1 EAC1 PO; LOSARTAN-HCTZ1 EAC2 PO; METOPROLOL TAR100 MG PO; SIMVASTATIN40 MG PO; TAMSULOSIN HCL0.4 MG PO
== END | disposition left against medical advice (07) ==
LOC: ER 14:52
DX: Z53.21 Procedure and treatment not carried out due to patient leaving prior to being seen by health care provider (principal)